=== PATIENT | female | born 1935 | race Caucasian/White ===

== ENCOUNTER 2017-10-20 18:10 | Emergency (ER) | payer OTHER, MEDICARE ==
[~2017-10-20] VITALS: Ht 157.5 cm; Wt 50.3 kg
[~2017-10-20 18:10] MED LIST: ALPRAZOLAM ER0.5 MG PO; CHILD ASPIRIN81 M1 PO; CILOSTAZOL100 MG PO; CIPRO500 MG PO; FLONASE16 G1 BOTH NARES; LISINOPRIL40 MG PO; MOTRIN600 MG PO; MUCUS ER600 MG PO; NORVASC10 MG PO; PREDNISONE20 MG PO; SIMVASTATIN40 MG PO; TIROSINT50 MCG PO; TOPROL XL50 MG PO
[2017-10-20 18:48] LABS: ADD MIUA? NO; BILIRUBIN NEGATIVE; BLOOD NEGATIVE; COLOR STRAW ((YELLOW)); GLUCOSE (STRIP) NEGATIVE; KETONES NEGATIVE; LEUKOCYTES NEGATIVE; NITRITE NEGATIVE; PROTEIN (STRIP) NEGATIVE; SPECIFIC GRAVITY 1.004 (1.000-1.030); UCUL ADDED? NO; UROBILINOGEN 0.2 MG/DL (0.2-1.0)
[2017-10-20 18:48] LABS: EOSINOPHIL COUNT 0.1 K/uL (0-0.3); HEMATOCRIT 44.5 % (36.0-46.0); IMMATURE GRANULOCYTE (%) 0.3 % (0.0-0.7); INSTRUMENT ABS NEUTROPHIL CT 4.2 K/uL; LYMPHOCYTE COUNT 2.2 K/uL (1.0-2.8); MCH 31.1 PG (29.0-34.0); MCHC 34.2 G/DL (30.0-36.0); MONOCYTE COUNT 0.7 K/uL (0-0.8); NEUTROPHIL (%) 57.8 % (45-76); NEUTROPHIL COUNT 4.2 K/uL (1.8-6.4); PLATELET COUNT 279 K/uL (156-360); RBC DIS.WIDTH-CV 13.6 % (11.8-14.6); RBC DIS.WIDTH-SD 45.8 % (39-53); RED BLOOD COUNT 4.89 M/uL (3.80-5.20); WHITE BLOOD COUNT 7.3 K/uL (4.1-10.2)
[2017-10-20 18:57] LABS: CHLORIDE 105 mEq/L (99-109); POTASSIUM 3.8 mEq/L (3.7-5.4); SODIUM 143 mEq/L (136-147)
[2017-10-20 18:59] LABS: GLUCOSE 107 mg/dL (70-99)
[2017-10-20 19:00] LABS: ANION GAP 13 MEQ/L (2-14)
[2017-10-20 19:01] LABS: TOTAL BILIRUBIN 0.5 mg/dL (0.0-1.0)
[2017-10-20 19:02] LABS: ALKALINE PHOSPHATASE 82 IU/L (3-129)
[2017-10-20 19:03] LABS: GFR ESTIMATE (CALCULATED) > 59 mL/min/
[2017-10-20 19:04] LABS: UREA NITROGEN (BUN) 10 mg/dL (9-23)
[2017-10-20] MEDS ORDERED: NORCO 5/3251 TABLET PO (21:19)
[2017-10-20 21:53] VITALS: BP 170/90
== END 2017-10-20 21:54 | disposition home or self-care (01) ==
LOC: EME 18:10
PROVIDERS: Physician Assistant
DX: R10.32 Left lower quadrant pain (principal); R10.2 Pelvic and perineal pain; R11.0 Nausea; N36.1 Urethral diverticulum; K57.30 Diverticulosis of large intestine without perforation or abscess without bleeding; Z87.442 Personal history of urinary calculi; I10 Essential (primary) hypertension; E78.5 Hyperlipidemia, unspecified; Z79.82 Long term (current) use of aspirin; Z79.52 Long term (current) use of systemic steroids; Z72.0 Tobacco use
CPT/HCPCS: 74177; 80053; 81003; 85025; 99281; 99284